=== PATIENT | male | born 1955 | race Caucasian/White ===

== ENCOUNTER 2016-08-08 15:51 | Emergency (ER) | payer MEDICAID, OTHER ==
[~2016-08-08] VITALS: Ht 170.2 cm; Wt 82.0 kg
[2016-08-08 15:53] VITALS: Ht 170.2 cm; Wt 82.0 kg
[2016-08-08 17:49] LABS: ADD SCAN DIFF NO
[2016-08-08 17:53] LABS: BASOPHIL # 0.1 10^3/ul (0.0-0.1); BASOPHILS % 0.4 % (0.0-2.0); EOSINOPHILS % 0.2 % (0.0-7.0); HEMATOCRIT 47.4 % (42.0-52.0); HEMOGLOBIN 16.2 g/dl (14.0-18.0); LYMPHOCYTES # 2.8 10^3/ul (0.8-2.9); LYMPHOCYTES % 21.8 % (15.0-51.0); MEAN CORPUSCULAR HEMOGLOBIN 30.7 pg (29.0-33.0); MEAN CORPUSCULAR HGB CONC 34.2 g/dl (32.0-37.0); MEAN CORPUSCULAR VOLUME 89.9 fl (82.0-101.0); MEAN PLATELET VOLUME 11.4 fl (7.4-10.4); MONOCYTE # 1.1 10^3/ul (0.3-0.9); MONOCYTES % 8.2 % (0.0-11.0); NEUTROPHILS % 69.2 % (39.0-77.0); PLATELET COUNT 236 10^3/UL (140-415); RED BLOOD COUNT 5.27 10^6/ul (4.70-6.10); RED CELL DISTRIBUTION WIDTH 13.1 % (11.5-14.5)
--- NOTE | 2016-08-08 17:56 | RADRPT ---
PROCEDURE: CT Brain without contrast. CLINICAL INDICATION: Headache. TECHNIQUE: A CT of the brain was performed on a [employer] 660 CT scanner utilizing a low dose technique with axial imaging from the skull base through the vertex without IV contrast. Multiplanar reformatted images were made. Images were reviewed on a PACS workstation. The CTDIvol is 43 mGy and the DLP is 720 mGycm. One or more of the following dose reduction techniques were used: - Automated exposure control. - Adjustment of the mA and/or kV according to patient size. Use of iterative reconstruction technique. COMPARISON: None FINDINGS: The fourth ventricle is normal in size. The third and lateral ventricles are normal in size and con figuration. The brain parenchyma is normal. The visible portions of the globes and extraocular muscles are normal. The paranasal sinuses are cl ear. The mastoid air cells and internal auditory canals are normal. The bony calvarium is intact. A benign lipoma is noted over the right parietal bone measuring 3 cm AP by 1.3 x 1 cm. There are vas cular calcifications in the cavernous and supracavernous portions of the internal carotid arteries. IMPRESSION: 1. Negative CT scan of the brain without contrast. No intracranial hemorrhage is identified. 2. Benign subcutaneous lipoma abutting the outer table of the right parietal bone. 3. There are vascular calcifications in the cavernous and supracavernous portions of the internal ca rotid arteries. RPTAT:AAJJ Physician Adriane Date Time Electronically viewed and signed by Physician Adriane on 08/08/2016 17:55 ORQUIDEA/
[2016-08-08 18:03] LABS: INR 1.01; PROTIME 13.3 Sec (12.2-14.2)
[2016-08-08 18:04] LABS: PARTIAL THROMBOPLASTIN TIME 29.8 Sec (25.0-35.0)
[2016-08-08 18:10] LABS: ANION GAP 14 (8-16); BLOOD UREA NITROGEN 15 mg/dl (7-20); CALCIUM 9.7 mg/dl (8.4-10.2); CARBON DIOXIDE 27 mmol/L (21-31); CHLORIDE 99 mmol/L (97-110); CREATININE 0.81 mg/dl (0.61-1.24); GLUCOSE 127 mg/dl (70-220); POTASSIUM 3.5 mmol/L (3.5-5.1); SODIUM 136 mmol/L (135-144)
[2016-08-08 18:21] LABS: TROPONIN-I < 0.012 ng/ml (0.00-0.12)
--- NOTE | 2016-08-08 18:33 | RADRPT ---
PROCEDURE: XR Chest. CLINICAL INDICATION: Chest Pain. TECHNIQUE: Single frontal view of the chest was obtained COMPARISON: None FINDINGS: The heart and mediastinum are within normal limits. The lungs are clear. There is no pleural effusion or pneumothorax. IMPRESSION: No definite abnormalities are identified. RPTAT:AAJJ Physician Duane Date Time Electronically viewed and signed by Benji Basurto Physician on 08/08/2016 18:33 /
[2016-08-08] MEDS ORDERED: HYDR-902 PO (19:14)
[2016-08-08] MEDS ORDERED: ONDA4TAB14 PO (19:14)
--- NOTE | 2016-08-08 19:20 | ERD ---
ER Documentation Chief Complaint Date/Time DATE: 08/08/16 TIME: 19:17 Chief Complaint BACK PAIN,HEADACHE,VOMITINGX 2DAYS HPI Patient is a 60-year-old male with hypertension who presents with multiple complaints. The patient has had chest pain, headache, and vomiting which started last night. He said that he feels much better now and only has a small amount of pain at this time. He felt diffusely weak but no one-sided weakness. The patient has had no treatment as of yet. He has subjective fever. He does not know why he is having the symptoms. Upon review of old medical records this the patient's first visit to the emergency department. He does not currently have a primary doctor. ROS All systems reviewed and are negative except as per history of present illness. Medications Home Meds Active Scripts Ondansetron (Ondansetron Odt) 4 Mg Tab.rapdis, 4 MG PO Q6H Y for NAUSEA AND/OR VOMITING, #30 TAB Prov:LEX NATARAJAN MD 08/08/16 Hydrocodone/Acetaminophen (Beach 10-325 Tablet) 1 Each Tablet, 1 TAB PO Q6H Y for PAIN, #7 TAB Prov:LEX NATARAJAN MD 08/08/16 Allergies Allergies: Coded Allergies: No Known Drug Allergy (Verified Allergy, Unknown, 08/08/16) PMhx/Soc Medical and Surgical Hx: pt denies Medical Hx, pt denies Surgical Hx Hx Alcohol Use: No Hx Substance Use: No Hx Tobacco Use: No Smoking Status: Never smoker FmHx Family History: No coronary disease Physical Exam Vitals Vital Signs Date Time Temp Pulse Resp B/P Pulse Ox O2 Delivery O2 Flow Rate FiO2 08/08/16 15:53 98.1 73 18 142/91 98 Physical Exam Const: No acute distress Head: Atraumatic Eyes: Normal Conjunctiva ENT: Normal External Ears, Nose and Mouth. Neck: Full range of motion..~ No meningismus. Resp: Clear to auscultation bilaterally Cardio: Regular rate and rhythm, no murmurs Abd: Soft, non tender, non distended. Normal bowel sounds Skin: No petechiae or rashes Back: No midline or flank tenderness Ext: No cyanosis, or edema, pulses 2+ in the upper and lower tremors bilaterally Neur: Awake and alert Psych: Normal Mood and Affect Result Diagram: 08/08/16 1730 08/08/16 1730 Results 24 hrs Laboratory Tests Test 08/08/16 17:30 White Blood Count 13.010^3/ul Red Blood Count 5.2710^6/ul Hemoglobin 16.2g/dl Hematocrit 47.4% Mean Corpuscular Volume 89.9fl Mean Corpuscular Hemoglobin 30.7pg Mean Corpuscular Hemoglobin Concent 34.2g/dl Red Cell Distribution Width 13.1% Platelet Count 57180^3/UL Mean Platelet Volume 11.4fl Neutrophils % 69.2% Lymphocytes % 21.8% Monocytes % 8.2% Eosinophils % 0.2% Basophils % 0.4% Nucleated Red Blood Cells % 0.0/100WBC Neutrophils # 9.010^3/ul Lymphocytes # 2.810^3/ul Monocytes # 1.110^3/ul Eosinophils # 0.010^3/ul Basophils # 0.110^3/ul Nucleated Red Blood Cells # 0.010^3/ul Prothrombin Time 13.3Sec Prothrombin Time Ratio 1.0 INR International Normalized Ratio 1.01 Activated Partial Thromboplast Time 29.8Sec Sodium Level 136mmol/L Potassium Level 3.5mmol/L Chloride Level 99mmol/L Carbon Dioxide Level 27mmol/L Anion Gap 14 Blood Urea Nitrogen 15mg/dl Creatinine 0.81mg/dl Glucose Level 127mg/dl Calcium Level 9.7mg/dl Troponin I < 0.012ng/ml [facility] EKG read by me: Rate/Rhythm: Regular rate and rhythm at a rate of 76 Intervals: Normal Impression: No evidence of ischemia or arrhythmia CT head shows no intracranial hemorrhage or mass per radiology. Chest x-ray is normal per radiology. Patient is a 60-year-old male with hypertension who presents with chest pain and headache. He had a full workup including EKG, CT scan of the brain, chest x -ray, and laboratory studies. His laboratory studies show leukocytosis but otherwise are normal. Troponin is negative. EKG shows no signs of ischemia or arrhythmia. Chest x-ray shows no pneumonia or pneumothorax. At this point I doubt acute coronary syndrome, pneumonia, pneumothorax, pulmonary embolism, or aortic dissection. I doubt intracranial hemorrhage, mass, or meningitis. I believe outpatient management is appropriate but the patient went to follow-up closely with a primary doctor within 24 hours. I will give him information for the local clinics as he does not currently have a primary doctor. He can return sooner for any worsening symptoms. He was given a copy of his laboratory studies and imaging test prior to discharge. Departure Diagnosis: Primary Impression: Headache Headache type: unspecified Headache chronicity pattern: acute headache Intractability: not intractable Qualified Code: R51 - Acute nonintractable headache, unspecified headache type Additional Impression: Chest pain Chest pain type: unspecified Qualified Code: R07.9 - Chest pain, unspecified type Condition: Fair Patient Instructions: Self-Care for Headaches, Chest Pain, Uncertain Cause Referrals: [facility] Usted se best hecho un examen mdico de control que le indica que no est en kirby condicin que requiera tratamiento urgente en el Departamento de Emergencia. Un estudio ms profundo y el tratamiento de bajwa condicin pueden esperar sin ningn riesgo hasta que usted sea atendida/o en el consultorio de bajwa mdico o kirby cl matt. Es responsabilidad suya arreglar kirby fili para el seguimiento del di. MANEJO DE CONDICIONES NO URGENTES EN EL FUTURO 1) Si usted tiene un mdico de atencin primaria: Usted debera llamar a bajwa mdico de atencin primaria antes de venir al departamento de emergencia. Despus de las horas de consultorio, bajwa doctor o bajwa asociado/a est disponible por telfono. El mdico o enfermero de leanne en el servicio telefnico puede asesorarle por surya medio para atender el problema, o di contrario se puede programar kirby fili. 2) Si usted no tiene un mdico de atencin primaria: Llame al mdico o clnica de referencia que aparece abajo raven las horas de consultorio para hacer kirby fili para que le vean. CLINICAS: [facility] [phone] [id number] [facility] 085 [phone] [id number] [facility] [phone] [facility] [phone] [facility] [phone] [address] [facility]. [phone] [address] Additional Instructions: Visite a bajwa madalyn ng para un EXAMEN.Regrese a estas instalaciones si no se mejora khushi esperbamos o khushi le dijimos. LEX NATARAJAN MD Aug 08, 2016 19:20
[2016-08-08 19:24] VITALS: BP 132/99; PULSE 77; RESP 18
== END 2016-08-08 19:25 | disposition home or self-care (01) ==
LOC: FTE 15:51
DX: R51 Headache (principal); R07.9 Chest pain, unspecified; I10 Essential (primary) hypertension
CPT/HCPCS: 36415; 70450; 71010; 80048; 84484; 85025; 85610; 85730; 93005; Z7502